=== PATIENT | female | born 1985 | race Two or more races ===

== ENCOUNTER 2019-02-02 19:52 | Emergency (ER) | payer OTHER ==
[~2019-02-02] VITALS: Ht 170.2 cm; Wt 81.2 kg
[~2019-02-02 19:52] MED LIST: TESSALON PERLE100 M1 PO; ZITHROMAX500 MG PO; ZYRTEC10 MG PO
[2019-02-02] MEDS ORDERED: LEVOTHYROXINE25 MCG (20:18)
[2019-02-02] MEDS ORDERED: SINGULAIR4 M1 (20:19)
== END 2019-02-02 21:25 | disposition home or self-care (01) ==
LOC: ER 19:52
DX: B34.9 Viral infection, unspecified (principal)

== ENCOUNTER 2019-02-11 18:36 | Emergency (ER) | payer OTHER ==
[~2019-02-11] VITALS: Ht 152.4 cm; Wt 93.4 kg
[~2019-02-11 18:36] MED LIST changes: +LEVOTHYROXINE25 MCG; +SINGULAIR4 M1
== END 2019-02-11 20:49 | disposition home or self-care (01) ==
LOC: ER 18:36
DX: S60.011A Contusion of right thumb without damage to nail, initial encounter (principal); M79.644 Pain in right finger(s); W22.8XXA Striking against or struck by other objects, initial encounter; Y93.89 Activity, other specified; Y92.89 Other specified places as the place of occurrence of the external cause; Y99.8 Other external cause status

== ENCOUNTER 2019-02-24 13:33 | Emergency (ER) | payer OTHER ==
[~2019-02-24] VITALS: Ht 167.6 cm; Wt 93.0 kg
[2019-02-24] MEDS ORDERED: LORATADINE10 M2 PO (14:12)
== END 2019-02-24 16:47 | disposition home or self-care (01) ==
LOC: ER 13:33
DX: Z76.0 Encounter for issue of repeat prescription (principal)

== ENCOUNTER 2019-03-16 21:08 | Emergency (ER) | payer OTHER ==
[~2019-03-16] VITALS: Ht 167.6 cm; Wt 92.5 kg
== END 2019-03-16 22:12 | disposition home or self-care (01) ==
LOC: ER 21:08
DX: M76.01 Gluteal tendinitis, right hip (principal)

== ENCOUNTER → 2019-03-16 | Emergency (ER) | payer OTHER ==
[~2019-03-16] VITALS: Ht 167.6 cm; Wt 92.5 kg
[~2019-03-16] MED LIST changes: +GABAPENTIN300 MG; +LORATADINE10 M2 PO
== END | disposition left against medical advice (07) ==
LOC: ER 15:40
DX: Z53.20 Procedure and treatment not carried out because of patient's decision for unspecified reasons (principal)

== ENCOUNTER 2019-04-03 09:34 | Emergency (ER) | payer OTHER ==
[~2019-04-03] VITALS: Ht 167.6 cm; Wt 93.4 kg
[2019-04-03] MEDS ORDERED: NORFLEX100MG PO (11:10)
[2019-04-03] MEDS ORDERED: KETOROLAC TROME10 MG PO (11:10)
== END 2019-04-03 11:12 | disposition home or self-care (01) ==
LOC: ER 09:34
DX: M54.5 Low back pain (principal); M25.561 Pain in right knee

== ENCOUNTER 2019-05-05 04:41 | Emergency (ER) | payer OTHER ==
[~2019-05-05] VITALS: Ht 167.6 cm; Wt 90.7 kg
[~2019-05-05 04:41] MED LIST changes: +KETOROLAC TROME10 MG PO; +NORFLEX100MG PO
[2019-05-06] MEDS ORDERED: VISTARIL50 MG PO (05:42)
== END 2019-05-05 07:16 | disposition home or self-care (01) ==
LOC: ER 04:41
DX: R00.2 Palpitations (principal)

== ENCOUNTER → 2019-05-06 | Emergency (ER) | payer OTHER ==
[~2019-05-06] VITALS: Ht 167.6 cm; Wt 86.2 kg
[~2019-05-06] MED LIST changes: +VISTARIL50 MG PO
== END | disposition home or self-care (01) ==
LOC: EMR PED 02:40 → ER 02:46 → EMR PED 02:46
DX: G47.09 Other insomnia (principal)

== ENCOUNTER 2019-05-19 20:37 | Emergency (ER) | payer OTHER ==
[~2019-05-19] VITALS: Ht 167.6 cm; Wt 90.7 kg
== END 2019-05-19 21:29 | disposition home or self-care (01) ==
LOC: ER 20:37
DX: F06.4 Anxiety disorder due to known physiological condition (principal)

== ENCOUNTER → 2019-09-26 | Emergency (ER) | payer OTHER | END | disposition left against medical advice (07) | LOC: ER 17:54 | DX: Z53.20 Procedure and treatment not carried out because of patient's decision for unspecified reasons (principal) ==

== ENCOUNTER → 2019-11-11 | Emergency (ER) | payer OTHER | END | disposition left against medical advice (07) | LOC: ER 16:34 | DX: Z53.20 Procedure and treatment not carried out because of patient's decision for unspecified reasons (principal) ==

== ENCOUNTER 2019-11-23 09:50 | Emergency (ER) | payer OTHER ==
[~2019-11-23] VITALS: Ht 167.6 cm; Wt 89.4 kg
[2019-11-23] MEDS ORDERED: ALLERGY RELIE15.8 ML (10:16)
[2019-11-23] MEDS ORDERED: CLONAZEPAM0.5 MG (10:17)
[2019-11-23] MEDS ORDERED: PROAIR HFA8.5 GM (10:17)
[2019-11-23] MEDS ORDERED: PEPCID AC20 MG PO (11:43)
[2019-11-23] MEDS ORDERED: CIPRO500 MG PO (11:43)
== END 2019-11-23 11:42 | disposition home or self-care (01) ==
LOC: ER 09:50
DX: R19.7 Diarrhea, unspecified (principal)

== ENCOUNTER 2020-01-11 15:12 | Emergency (ER) | payer OTHER ==
[~2020-01-11] VITALS: Ht 167.6 cm; Wt 92.1 kg
[~2020-01-11 15:12] MED LIST changes: +ALLERGY RELIE15.8 ML; +CIPRO500 MG PO; +CLONAZEPAM0.5 MG; +PEPCID AC20 MG PO; +PROAIR HFA8.5 GM
[2020-01-11] MEDS ORDERED: NABUMETONE750 MG PO (15:35)
[2020-01-11] MEDS ORDERED: LOSARTAN POTASS50 MG PO (15:35)
[2020-01-11] MEDS ORDERED: QUETIAPINE FUMA50 MG PO (15:35)
[2020-01-11] MEDS ORDERED: HYDROCHLOROTH12.5 MG PO (15:35)
[2020-01-11] MEDS ORDERED: CLARITIN10 MG PO (15:35)
[2020-01-11] MEDS ORDERED: LAMICTAL100 MG PO (15:35)
== END 2020-01-11 18:29 | disposition home or self-care (01) ==
LOC: ER 15:12
DX: M25.572 Pain in left ankle and joints of left foot (principal)

== ENCOUNTER 2020-02-07 14:55 | Emergency (ER) | payer OTHER ==
[~2020-02-07] VITALS: Ht 167.6 cm; Wt 92.5 kg
[~2020-02-07 14:55] MED LIST changes: +CLARITIN10 MG PO; +HYDROCHLOROTH12.5 MG PO; +LAMICTAL100 MG PO; +LOSARTAN POTASS50 MG PO; +NABUMETONE750 MG PO; +QUETIAPINE FUMA50 MG PO
[2020-02-07] MEDS ORDERED: AMOX-CLAV 500-1 EACH PO (16:35)
[2020-02-07] MEDS ORDERED: PEPCID AC20 MG PO (16:37)
== END 2020-02-07 16:46 | disposition home or self-care (01) ==
LOC: ER 14:55
DX: T16.1XXA Foreign body in right ear, initial encounter (principal); W45.8XXA Other foreign body or object entering through skin, initial encounter; Y93.89 Activity, other specified; Y92.89 Other specified places as the place of occurrence of the external cause; Y99.8 Other external cause status; H66.91 Otitis media, unspecified, right ear

== ENCOUNTER 2020-04-03 21:50 | Emergency (ER) | payer OTHER ==
[~2020-04-03] VITALS: Ht 167.6 cm; Wt 61.2 kg
[~2020-04-03 21:50] MED LIST changes: +AMOX-CLAV 500-1 EACH PO
[2020-04-03] MEDS ORDERED: VALTREX1000 MG PO (22:22)
== END 2020-04-03 22:45 | disposition home or self-care (01) ==
LOC: ER 21:50
DX: B00.1 Herpesviral vesicular dermatitis (principal)

== ENCOUNTER 2020-04-11 21:54 | Emergency (ER) | payer OTHER ==
[~2020-04-11] VITALS: Ht 167.6 cm; Wt 87.1 kg
[~2020-04-11 21:54] MED LIST changes: +VALTREX1000 MG PO
[2020-04-12] MEDS ORDERED: KETO10TA2 PO (00:49)
[2020-04-12] MEDS ORDERED: RELAFEN DS1000 MG PO (00:53)
== END 2020-04-12 02:20 | disposition home or self-care (01) ==
LOC: ER 21:54
DX: N92.5 Other specified irregular menstruation (principal)

== ENCOUNTER 2020-04-14 08:33 | Emergency (ER) | payer OTHER ==
[~2020-04-14] VITALS: Ht 167.6 cm; Wt 61.2 kg
[~2020-04-14 08:33] MED LIST changes: +KETO10TA2 PO; +RELAFEN DS1000 MG PO
[2020-04-14] MEDS ORDERED: VISTARIL50 MG PO (09:12)
== END 2020-04-14 09:25 | disposition home or self-care (01) ==
LOC: ER 08:33
DX: F06.4 Anxiety disorder due to known physiological condition (principal)

== ENCOUNTER 2020-04-26 05:12 | Emergency (ER) | payer OTHER ==
[~2020-04-26] VITALS: Ht 167.6 cm; Wt 72.6 kg
[~2020-04-26 05:12] MED LIST changes: -BACITRAYCIN PLU28 GM TOP; -WELLBUTRIN SR100 MG
[2020-04-26] MEDS ORDERED: CLONAZEPAM0.5 MG (05:55)
[2020-04-26] MEDS ORDERED: WELLBUTRIN SR100 MG (05:56)
[2020-04-26] MEDS ORDERED: KETO10TA2 PO (06:44)
[2020-04-26] MEDS ORDERED: BACITRAYCIN PLU28 GM TOP ×3 (06:44→07:13)
[2020-04-26] MEDS ORDERED: RELAFEN DS1000 MG PO ×2 (07:13)
[2020-04-26] MEDS ORDERED: NABUMETONE750 MG PO ×2 (07:37)
== END 2020-04-26 09:07 | disposition home or self-care (01) ==
LOC: ER 05:12
DX: S61.422A Laceration with foreign body of left hand, initial encounter (principal); S61.421A Laceration with foreign body of right hand, initial encounter; W45.8XXA Other foreign body or object entering through skin, initial encounter; Y93.89 Activity, other specified; Y92.89 Other specified places as the place of occurrence of the external cause; Y99.8 Other external cause status

== ENCOUNTER → 2020-04-26 | Emergency (ER) | payer OTHER ==
[~2020-04-26] VITALS: Ht 167.6 cm; Wt 81.6 kg
[~2020-04-26] MED LIST changes: +BACITRAYCIN PLU28 GM TOP; +WELLBUTRIN SR100 MG
== END | disposition left against medical advice (07) ==
LOC: ER 15:05
DX: Z53.20 Procedure and treatment not carried out because of patient's decision for unspecified reasons (principal)

== ENCOUNTER 2020-05-13 23:24 | Emergency (ER) | payer OTHER ==
[~2020-05-13] VITALS: Ht 167.6 cm; Wt 85.3 kg
[~2020-05-13 23:24] MED LIST changes: +BACITRAYCIN PLU28 GM TOP; +WELLBUTRIN SR100 MG
[2020-05-14] MEDS ORDERED: NABUMETONE750 MG PO (01:20)
== END 2020-05-14 01:27 | disposition home or self-care (01) ==
LOC: ER 23:24
DX: R51.9 Headache, unspecified (principal)

== ENCOUNTER 2020-06-02 23:33 | Emergency (ER) | payer OTHER ==
[~2020-06-02] VITALS: Ht 175.3 cm; Wt 84.4 kg
[2020-06-02] MEDS ORDERED: RISPERDAL4 MG (23:42)
== END 2020-06-03 01:20 | disposition home or self-care (01) ==
LOC: ER 23:33
DX: S93.492A Sprain of other ligament of left ankle, initial encounter (principal); X50.0XXA Overexertion from strenuous movement or load, initial encounter; Y93.01 Activity, walking, marching and hiking; Y92.018 Other place in single-family (private) house as the place of occurrence of the external cause; Y99.8 Other external cause status

== ENCOUNTER → 2020-12-15 | Outpatient (CLI) | payer OTHER ==
[~2020-12-15] MED LIST changes: +RISPERDAL4 MG
== END | disposition home or self-care (01) ==
LOC: PPH VACUNA 08:39
DX: Z23 Encounter for immunization (principal)

== ENCOUNTER 2020-12-28 02:09 | Emergency (ER) | payer OTHER ==
[~2020-12-28] VITALS: Ht 167.6 cm; Wt 68.0 kg
== END 2020-12-28 03:08 | disposition home or self-care (01) ==
LOC: ER 02:09
DX: M62.830 Muscle spasm of back (principal); M54.5 Low back pain

== ENCOUNTER 2021-02-17 08:00 | Outpatient (CLI) | payer OTHER | END 2021-02-17 08:30 | disposition home or self-care (01) | LOC: PPH VACUNA 08:00 | DX: Z23 Encounter for immunization (principal) ==